=== PATIENT | female | born 1995 | race African-American/Black ===

== ENCOUNTER 2017-06-20 17:51 | Emergency (ER) | payer MEDICAID ==
[~2017-06-20] VITALS: Ht 160 cm; Wt 76.0 kg
[2017-06-20 17:53] VITALS: BP 104/66
[2017-06-20] MEDS ORDERED: LIDOCAINE 1%, 20ML ONE (18:23)
[2017-06-20] MEDS ORDERED: LIDOCAINE 1%, 20ML SQ ONE (18:30)
== END 2017-06-20 18:55 | disposition home or self-care (01) ==
LOC: ED 18:54
DX: L02.415 Cutaneous abscess of right lower limb (principal)
CPT/HCPCS: 10060; 99283

== ENCOUNTER 2017-06-23 12:32 | Emergency (ER) | payer MEDICAID ==
[~2017-06-23] VITALS: Ht 160 cm; Wt 74.5 kg
[2017-06-23 12:33] VITALS: BP 126/81
== END 2017-06-23 13:03 | disposition home or self-care (01) ==
LOC: ED 12:57
DX: Z48.01 Encounter for change or removal of surgical wound dressing (principal)
CPT/HCPCS: 99283